=== PATIENT | female | born 1995 | race Caucasian/White ===

== ENCOUNTER 2017-08-30 13:50 | Emergency (ER) | payer OTHER ==
[~2017-08-30] VITALS: Wt 88.8 kg
[2017-08-30 13:53] VITALS: Wt 88.8 kg
[2017-08-30] MEDS ORDERED: ONDANSETRON 4 MG INJ IV STA ×2 (14:42→17:41)
[2017-08-30] MEDS ORDERED: SOD CHLORIDE 0.9% 1,000 ML IV STA ×2 (14:42→17:41)
[2017-08-30] MEDS ORDERED: INSU100C SQ (14:49)
[2017-08-30] MEDS ORDERED: INSU100I33 SC (14:50)
[2017-08-30 15:26] LABS: BASOPHILS % 0.3 % (0.0-2.0); EOSINOPHILS # 0.1 10^3/ul (0.0-0.5); EOSINOPHILS % 2.2 % (0.0-7.0); HEMATOCRIT 40.4 % (37.0-47.0); HEMOGLOBIN 12.9 g/dl (12.0-16.0); LYMPHOCYTES % 33.8 % (15.0-51.0); MEAN CORPUSCULAR HEMOGLOBIN 22.6 pg (29.0-33.0); MEAN CORPUSCULAR HGB CONC 31.9 g/dl (32.0-37.0); MEAN CORPUSCULAR VOLUME 70.9 fl (82.0-101.0); MEAN PLATELET VOLUME 11.1 fl (7.4-10.4); MONOCYTE # 0.4 10^3/ul (0.3-0.9); MONOCYTES % 7.4 % (0.0-11.0); NEUTROPHIL # 3.4 10^3/ul (1.6-7.5); PLATELET COUNT 275 10^3/UL (140-415); RED CELL DISTRIBUTION WIDTH 14.8 % (11.5-14.5)
[2017-08-30 15:31] LABS: ADD UMIC YES; UR ASCORBIC ACID NEGATIVE (NEGATIVE); UR BILIRUBIN (Dip) NEGATIVE (NEGATIVE); UR BLOOD (Dip) 3+ mg/dL (NEGATIVE); UR CLARITY CLEAR (CLEAR); UR COLOR YELLOW (YELLOW); UR GLUCOSE (Dip) 3+ mg/dL (NEGATIVE); UR KETONES (Dip) 2+ mg/dL (NEGATIVE); UR LEUKOCYTE ESTERASE (Dip) NEGATIVE Leu/ul (NEGATIVE); UR MUCUS FEW /HPF (NONE SEEN); UR NITRITE (Dip) NEGATIVE (NEGATIVE); UR RBC 32 /HPF (0-5); UR SPECIFIC GRAVITY (Dip) 1.033 (1.003-1.030); UR TOTAL PROTEIN (Dip) NEGATIVE (NEGATIVE); UR UROBILINOGEN (Dip) NEGATIVE (NEGATIVE)
[2017-08-30] MEDS ORDERED: KETOROLAC 30 MG INJ IV STA (15:31)
[2017-08-30 15:40] LABS: INR 0.89; PROTIME 12.1 Sec (11.9-14.9); PT RATIO 0.9
[2017-08-30 15:41] LABS: PARTIAL THROMBOPLASTIN TIME 24.9 Sec (25.0-35.0)
[2017-08-30 15:47] LABS: ALBUMIN/GLOBULIN RATIO 1.22
[2017-08-30 15:53] LABS: ALBUMIN 4.3 g/dl (3.3-4.9); BILIRUBIN,INDIRECT 0.6 mg/dl (0-1.1); BILIRUBIN,TOTAL 0.6 mg/dl (0.2-1.3); CALCIUM 9.9 mg/dl (8.4-10.2); CREATININE 0.47 mg/dl (0.44-1.00); MAGNESIUM 1.7 mg/dl (1.7-2.5); PHOSPHORUS 3.8 mg/dl (2.5-4.9); POTASSIUM 4.1 mmol/L (3.5-5.1); TOTAL PROTEIN 7.8 g/dl (6.1-8.1)
[2017-08-30 16:05] LABS: AADO2 Arterial 9.8 mmHg (7.0-24.0); Allen Test ACCEPTAB; Arterial Base Excess -4.2 mmol/L (-3.0-3); Arterial COHb 0.6 % (0.0-3.0); Arterial Fraction of Oxyhgb 96.8 % (93.0-99.0); Arterial HCO3 19.8 mmol/L (22.0-26.0); Arterial MetHb 0.1 % (0.0-1.5); Arterial Total Hemglobin 13.4 g/dl (12.0-18.0); MODE ROOM AIR
[2017-08-30] MEDS ORDERED: FAMOTIDINE 20 MG INJ IV STA (17:41)
--- NOTE | 2017-08-30 17:49 | ERD ---
ER Documentation Chief Complaint Chief Complaint vomiting x 3 days, DIABETIC ON INSULIN HPI This is a very pleasant 21-year-old female that presents to the emergency department complaining of multiple episodes of nonbloody nonbilious emesis for the past 3 days. Patient has a history of insulin-dependent diabetes mellitus. She indicates that she has not been able to tolerate oral intake due to the subsequent emesis. Took her blood sugar prior to arrival and it was greater than 400. She denies any polyuria or polydipsia. She does complain of mild dysuria with no frequency or urgency. She has had no fevers or shaking or chills. She stated she experienced mild abdominal cramping prior to the emesis but denies any localized abdominal pain. She has had no diarrhea. She denies any recent travel or prolonged immobilization. She states she had been eating a significant amount of fast food which she feels could have exacerbated her symptoms. ROS All systems reviewed and are negative except as per history of present illness. Medications Home Meds Reported Medications Insulin Glargine,Hum.rec.anlog (Basaglar Kwikpen U-100) 100 Unit/1 Ml Insuln.pen , 42 UNIT SC Q12 08/30/17 Insulin Lispro (Humalog) 100 Unit/1 Ml Cartridge, 0-20 UNIT SQ AC MEALS 08/30/17 Allergies Allergies: Coded Allergies: latex (Verified Allergy, Unknown, rash, 08/30/17) tetracycline (Verified Allergy, Unknown, rash, 08/30/17) PMhx/Soc History of Surgery: Yes (c sect x1) Hx Cardiac Disorders: Yes (1 degree heart block) Hx Miscellaneous Medical Probl: Yes (dm1) Hx Alcohol Use: No Hx Substance Use: No Hx Tobacco Use: No Smoking Status: Unknown if ever smoked Physical Exam Vitals Vital Signs Date Time Temp Pulse Resp B/P Pulse Ox O2 Delivery O2 Flow Rate FiO2 08/30/17 13:53 97.8 79 18 134/82 99 Physical Exam Constitutional:Well-developed. Well-nourished. HEENT:Normocephalic. Atraumatic.Pupils were equal round reactive to light. Dry mucous membranes.No tonsillar exudates. Neck: No nuchal rigidity. No lymphadenopathy. No posterior cervical spine tenderness or step-offs. Respiratory: Not using accessory muscles of respiration.Lungs were clear to auscultation bilaterally. No rhonchi. No rales. No wheezing. Cardiovascular: Regular rate regular rhythm.No murmurs. No rubs were appreciated.S1, S2 normal. Distal pulses are palpable 2+ bilaterally. GI: Abdomen was soft. Nontender. Non Distended. No pulsatile abdominal masses or bruits. No rebound. No guarding. Bowel sounds were present and normal. Muscle skeletal: Full range of motion of both the upper and lower extremities bilaterally.Normal muscle tone.No assymetrical calf tenderness or swelling. Skin: No petechia, no purpura. No lesions on the palms or the soles of the feet. No maculopapular rash. NEURO: Patient was alert, awake, orientated x3.No facial droop. Gait observed and normal with no ataxia.Speech had regular rate and rhythm. No focal neurological deficits. Result Diagram: 08/30/17 1510 08/30/17 1510 Results 24 hrs Laboratory Tests Test 08/30/17 14:42 08/30/17 15:10 Urine Color YELLOW Urine Clarity CLEAR Urine pH 5.0 Urine Specific [place] 1.033 Urine Ketones 2+mg/dL Urine Nitrite NEGATIVEmg/dL Urine Bilirubin NEGATIVEmg/dL Urine Urobilinogen NEGATIVEmg/dL Urine Leukocyte Esterase NEGATIVELeu/ul Urine Microscopic RBC 32/HPF Urine Microscopic WBC 9/HPF Urine Mucus FEW/HPF Urine Hemoglobin 3+mg/dL Urine Glucose 3+mg/dL Urine Total Protein NEGATIVEmg/dl Blood Gas Specimen Source Blood arterial Arterial Blood Date Drawn 08/30/2017 3:50:19 PM Arterial Blood pH (Temp corrected) 7.393 Arterial Blood pCO2 (Temp correct) 33.2mmhg Arterial Blood pO2 (Temp corrected) 100.2mmHG Arterial Blood HCO3 19.8mmol/L Arterial Blood Base Excess -4.2mmol/L Arterial Blood Oxygen Saturation 97.5mmHG Tay Test ACCEPTAB Arterial Blood Gas Puncture Site Right Radial Arterial Blood Carboxyhemoglobin 0.6% Arterial Blood Methemoglobin 0.1% Blood Gas A-a O2 Differential 9.8mmHg Oxyhemoglobin Percent 96.8% Total Hemoglobin 13.4g/dl Blood Gas Temperature 37.0C Blood Gas Modality ROOM AIR FiO2 21.0% Blood Gas Notified Whom JLD Blood Gas Notified Time 08/30/2017 4:05:51 PM White Blood Count 6.010^3/ul Red Blood Count 5.7010^6/ul Hemoglobin 12.9g/dl Hematocrit 40.4% Mean Corpuscular Volume 70.9fl Mean Corpuscular Hemoglobin 22.6pg Mean Corpuscular Hemoglobin Concent 31.9g/dl Red Cell Distribution Width 14.8% Platelet Count 09605^3/UL Mean Platelet Volume 11.1fl Neutrophils % 56.0% Lymphocytes % 33.8% Monocytes % 7.4% Eosinophils % 2.2% Basophils % 0.3% Nucleated Red Blood Cells % 0.0/100WBC Neutrophils # 3.410^3/ul Lymphocytes # 2.010^3/ul Monocytes # 0.410^3/ul Eosinophils # 0.110^3/ul Basophils # 0.010^3/ul Nucleated Red Blood Cells # 0.010^3/ul Prothrombin Time 12.1Sec Prothrombin Time Ratio 0.9 INR International Normalized Ratio 0.89 Activated Partial Thromboplast Time 24.9Sec Sodium Level 136mmol/L Potassium Level 4.1mmol/L Chloride Level 99mmol/L Carbon Dioxide Level 20mmol/L Anion Gap 21 Blood Urea Nitrogen 12mg/dl Creatinine 0.47mg/dl Glucose Level 353mg/dl Lactic Acid Level 1.1mmol/L Calcium Level 9.9mg/dl Phosphorus Level 3.8mg/dl Magnesium Level 1.7mg/dl Total Bilirubin 0.6mg/dl Direct Bilirubin 0.00mg/dl Indirect Bilirubin 0.6mg/dl Aspartate Amino Transf (AST/SGOT) 16IU/L Alanine Aminotransferase (ALT/SGPT) 24IU/L Alkaline Phosphatase 74IU/L Total Protein 7.8g/dl Albumin 4.3g/dl Globulin 3.50g/dl Albumin/Globulin Ratio 1.22 Amylase Level 65U/L Lipase 76U/L Serum HCG, Qualitative NEGATIVE Current Medications Medications (Trade) Dose Ordered Sig/Karan Route PRN Reason Start Time Stop Time Status Last Admin Dose Admin Sodium Chloride (NS) 1,000 ml @ 1,000 mls/hr Q1H STAT IV 08/30/17 14:42 08/30/17 15:41 DC 08/30/17 15:17 Ondansetron HCl (Zofran Inj) 4 mg ONCE STAT IV 08/30/17 14:42 08/30/17 14:45 DC 08/30/17 15:16 Ketorolac Tromethamine 30 mg 30 mg ONCE STAT IV 08/30/17 15:31 08/30/17 15:33 DC 08/30/17 16:17 Sodium Chloride (NS) 1,000 ml @ 1,000 mls/hr Q1H STAT IV 08/30/17 17:41 08/30/17 18:40 UNV Ondansetron HCl (Zofran Inj) 4 mg ONCE STAT IV 08/30/17 17:41 08/30/17 17:42 UNV Famotidine (Pepcid Iv) 20 mg ONCE STAT IV 08/30/17 17:41 08/30/17 17:42 UNV Procedures/MDM This is a very pleasant 21-year-old female presented department with repeated episodes of emesis. The patient's abdomen was benign. I did feel this could be a result of viral etiology however the patient did require multiple doses of IV fluids to prevent diabetic ketoacidosis. She was hyperglycemic without ketosis. I obtained an arterial blood gas which showed no acidosis. The patient was now able to tolerate oral intake and therefore was able to be safely discharged home. The patient's bicarb is slightly low at 19.8 but again there is no evidence of DKA. Observation Note: Time: 4 hours Family Hx: No Hypertension Evaluation: Multiple exams showed improving symptoms and no evidence of hepatic ketoacidosis or peritoneal signs The patient was discharged home in fair condition. They were instructed to return to the emergency department at any time if there was any worsening of their condition. The patient stated they would follow up with their PCP in the next 24-48 hours to initiate a suitable medication regimen under the care of their PCP as well as to allow their PCP to monitor any drug reactions. The patient was discharged home with prescriptions after they gave informed consent to the new medication. They were also fully informed by myself on the adverse effects and adverse drug interactions in order to provide adequate safeguards to prevent possible adverse reactions to medications. Departure Diagnosis: Primary Impression: Acute vomiting Additional Impression: Hyperglycemia without ketosis Condition: FRANCIA Woodard Aug 30, 2017 17:49
[2017-08-30] MEDS ORDERED: ONDA4TAB14 PO (17:51)
[2017-08-30 19:44] VITALS: BP 119/63; PULSE 78; RESP 16
== END 2017-08-30 19:45 | disposition home or self-care (01) ==
LOC: E/R 13:50
DX: R11.10 Vomiting, unspecified (principal); E10.65 Type 1 diabetes mellitus with hyperglycemia; R10.9 Unspecified abdominal pain; Z79.4 Long term (current) use of insulin
CPT/HCPCS: 36415; 36600; 80053; 81001; 82150; 82803; 82962; 83605; 83690; 83735; 84100; 84703; 85025; 85610; 85730; 96374; 96375; 96376; J1885; J2405; J7030; Z7502; Z7610